=== PATIENT | female | born 1985 | race Caucasian/White ===

== ENCOUNTER 2017-07-04 19:27 | Outpatient (CLI) | payer BC ==
[~2017-07-04] VITALS: Ht 157.5 cm; Wt 83.4 kg
[~2017-07-04 19:27] MED LIST: ADDERALL XR 2525 MG PO; MACROBID100 MG PO; MOTRIN600 MG PO; PRILOSEC20 MG PO; ROBITUSSIN AC,T10 ML PO; ZITHROMAX Z-PA250 MG PO
[2017-07-04] MEDS ORDERED: PRENATA CHEWAB1 EACH PO (20:31)
[2017-07-04 20:38] VITALS: BP 126/80
[2017-07-04 21:06] LABS: BASOPHIL COUNT 0.1 K/uL (0-0.1); EOSINOPHIL (%) 0.8 % (0-5); EOSINOPHIL COUNT 0.1 K/uL (0-0.3); HEMATOCRIT 28.9 % (36.0-46.0); IMMATURE GRANULOCYTE (%) 1.4 % (0.0-0.7); IMMATURE GRANULOCYTE COUNT 0.2 K/uL; INSTRUMENT ABS NEUTROPHIL CT 7.8 K/uL; LYMPHOCYTE COUNT 1.7 K/uL (1.0-2.8); MCH 27.6 PG (29.0-34.0); MCHC 33.2 G/DL (30.0-36.0); MEAN PLAT.VOLUME 9.8 uM^3 (9.5-12.4); NEUTROPHIL (%) 72.5 % (45-76); NEUTROPHIL COUNT 7.8 K/uL (1.8-6.4); PLATELET COUNT 235 K/uL (156-360); RBC DIS.WIDTH-CV 13.2 % (11.8-14.6); RBC DIS.WIDTH-SD 39.8 % (39-53); RED BLOOD COUNT 3.48 M/uL (3.80-5.20); WHITE BLOOD COUNT 10.7 K/uL (4.1-10.2)
[2017-07-04 21:12] VITALS: BP 113/72
[2017-07-04 21:42] VITALS: BP 122/61
[2017-07-04 22:12] VITALS: BP 114/74
[2017-07-04 23:36] VITALS: BP 113/70
[2017-07-05] VITALS (19 sets, daily range): BP systolic 97–128; BP diastolic 52–85
== END 2017-07-05 19:15 | disposition home or self-care (01) ==
LOC: LDRP-OP → 2WEST 19:31 → LDRP-OP 07-05 09:13 → 2WEST 07-05 19:15 → LDRP-OP 08-10 15:15
PROVIDERS: Advanced Practice Midwife
PROC: 0U7C7ZZ Dilation of Cervix, Via Natural or Artificial Opening (ICD-10-PCS; principal; 2017-07-04)
DX: O61.0 Failed medical induction of labor (principal); O99.341 Other mental disorders complicating pregnancy, first trimester; F32.9 Major depressive disorder, single episode, unspecified; F41.9 Anxiety disorder, unspecified; Z3A.39 39 weeks gestation of pregnancy
CPT/HCPCS: 59025; 85025; G0378

== ENCOUNTER 2017-07-12 14:34 | Outpatient (CLI) | payer BC ==
[~2017-07-12 14:34] MED LIST changes: +PRENATA CHEWAB1 EACH PO
[2017-07-12 14:45] VITALS: BP 119/76
[2017-07-12 19:30] VITALS: BP 141/81
== END 2017-07-12 21:45 | disposition home or self-care (01) ==
LOC: LDRP-OP 14:34 → 2WEST 14:36 → LDRP-OP 08-10 19:20
DX: O36.8130 Decreased fetal movements, third trimester, not applicable or unspecified (principal); Z3A.40 40 weeks gestation of pregnancy
CPT/HCPCS: 59025; 76805; G0378

== ENCOUNTER 2017-07-18 07:22 | Inpatient (IN) | payer BC ==
[~2017-07-18] VITALS: Ht 157.5 cm; Wt 86.1 kg
[2017-07-18] VITALS (16 sets, daily range): BP systolic 113–132; BP diastolic 56–84
[2017-07-18 12:32] LABS: EOSINOPHIL (%) 0.8 % (0-5); EOSINOPHIL COUNT 0.1 K/uL (0-0.3); HEMATOCRIT 29.6 % (36.0-46.0); IMMATURE GRANULOCYTE (%) 1.7 % (0.0-0.7); IMMATURE GRANULOCYTE COUNT 0.2 K/uL; LYMPHOCYTE COUNT 1.3 K/uL (1.0-2.8); MCHC 32.8 G/DL (30.0-36.0); MCV 82.5 FL (83-99); MEAN PLAT.VOLUME 9.9 uM^3 (9.5-12.4); MONOCYTE (%) 8.8 % (3-12); MONOCYTE COUNT 0.8 K/uL (0-0.8); NEUTROPHIL (%) 74.9 % (45-76); PLATELET COUNT 219 K/uL (156-360); RBC DIS.WIDTH-CV 13.4 % (11.8-14.6); RBC DIS.WIDTH-SD 39.8 % (39-53); RED BLOOD COUNT 3.59 M/uL (3.80-5.20); WHITE BLOOD COUNT 9.3 K/uL (4.1-10.2)
[2017-07-19] VITALS (15 sets, daily range): BP systolic 105–126; BP diastolic 57–82
[2017-07-20 00:30] VITALS: BP 120/66
[2017-07-20 02:30] VITALS: BP 110/66
[2017-07-20 07:25] VITALS: BP 106/59
[2017-07-20 07:26] LABS: EOSINOPHIL (%) 0 % (0-5); HEMATOCRIT 18.7 % (36.0-46.0); IMMATURE GRANULOCYTE (%) 1.3 % (0.0-0.7); IMMATURE GRANULOCYTE COUNT 0.2 K/uL; INSTRUMENT ABS NEUTROPHIL CT 14.1 K/uL; LYMPHOCYTE COUNT 1.5 K/uL (1.0-2.8); MCH 26.6 PG (29.0-34.0); MCHC 32.6 G/DL (30.0-36.0); MCV 81.7 FL (83-99); MONOCYTE COUNT 1.8 K/uL (0-0.8); NEUTROPHIL (%) 80.1 % (45-76); NEUTROPHIL COUNT 14.1 K/uL (1.8-6.4); PLATELET COUNT 169 K/uL (156-360); RBC DIS.WIDTH-CV 13.7 % (11.8-14.6); RBC DIS.WIDTH-SD 40.9 % (39-53); WHITE BLOOD COUNT 17.6 K/uL (4.1-10.2)
[2017-07-20 07:28] LABS: RED BLOOD COUNT 2.29 M/uL (3.80-5.20)
[2017-07-20 11:02] VITALS: BP 115/74
[2017-07-20 14:57] VITALS: BP 137/68
[2017-07-21 09:51] LABS: EOSINOPHIL (%) 0.4 % (0-5); EOSINOPHIL COUNT 0.1 K/uL (0-0.3); HEMATOCRIT 19.8 % (36.0-46.0); IMMATURE GRANULOCYTE (%) 1.5 % (0.0-0.7); IMMATURE GRANULOCYTE COUNT 0.2 K/uL; INSTRUMENT ABS NEUTROPHIL CT 10.1 K/uL; LYMPHOCYTE COUNT 1.1 K/uL (1.0-2.8); MCH 26.3 PG (29.0-34.0); MCHC 31.8 G/DL (30.0-36.0); MCV 82.5 FL (83-99); MEAN PLAT.VOLUME 9.6 uM^3 (9.5-12.4); MONOCYTE (%) 7.9 % (3-12); NEUTROPHIL (%) 81.3 % (45-76); NEUTROPHIL COUNT 10.1 K/uL (1.8-6.4); NRBC (%) 0.2 /100 WBC (0-0); PLATELET COUNT 233 K/uL (156-360); RBC DIS.WIDTH-SD 41.9 % (39-53); WHITE BLOOD COUNT 12.4 K/uL (4.1-10.2)
[2017-07-21 23:10] VITALS: BP 118/70
[2017-07-22 02:53] VITALS: BP 114/60
[2017-07-22] MEDS ORDERED: CHROMAGEN,1 CAPSULE PO (09:09)
[2017-07-22] MEDS ORDERED: IBUPROFEN800 MG PO (09:09)
== END 2017-07-22 13:10 | disposition home or self-care (01) | DRG 765 ==
LOC: LDRP-OP 07:22 → 2WEST 07:23 → LDRP-OP 16:24 → 2WEST 07-19 14:33 → LDRP-OP 08-10 23:14
PROVIDERS: Advanced Practice Midwife; Obstetrics & Gynecology; Obstetrics & Gynecology Obstetrics
PROC: 10D00Z1 Extraction of Products of Conception, Low, Open Approach (ICD-10-PCS; principal; 2017-07-18)
PROC: 10907ZC Drainage of Amniotic Fluid, Therapeutic from Products of Conception, Via Natural or Artificial Opening (ICD-10-PCS; 2017-07-18)
PROC: 3E033VJ Introduction of Other Hormone into Peripheral Vein, Percutaneous Approach (ICD-10-PCS; 2017-07-18)
PROC: 3E0S33Z Introduction of Anti-inflammatory into Epidural Space, Percutaneous Approach (ICD-10-PCS; 2017-07-18)
DX: O48.0 Post-term pregnancy (principal); D62 Acute posthemorrhagic anemia; F33.9 Major depressive disorder, recurrent, unspecified; Z37.0 Single live birth; Z3A.41 41 weeks gestation of pregnancy; O61.0 Failed medical induction of labor; O63.0 Prolonged first stage (of labor); O62.1 Secondary uterine inertia; O99.02 Anemia complicating childbirth; D50.8 Other iron deficiency anemias; F90.9 Attention-deficit hyperactivity disorder, unspecified type; K21.9 Gastro-esophageal reflux disease without esophagitis; O99.344 Other mental disorders complicating childbirth; O99.62 Diseases of the digestive system complicating childbirth; Z91.012 Allergy to eggs; Z88.0 Allergy status to penicillin; Z88.2 Allergy status to sulfonamides
CPT/HCPCS: 85025; C1755; J0690; J1756; J1885; J2274; J2405; J2765; J7050; J7120